=== PATIENT | male | born 1995 | race Two or more races ===

== ENCOUNTER 2017-01-09 16:57 | Emergency (ER) | payer BC ==
[~2017-01-09] VITALS: Ht 182.9 cm; Wt 85.7 kg
[2017-01-09 17:36] VITALS: BP 122/76
[2017-01-09 18:35] VITALS: BP 122/76
--- NOTE | 2017-01-09 18:35 | NUR ---
JORGE IS A 21 YO MALE BIB SELF VIA EMS FOR ANXIETY SEEN BY PA IN OVERFLOW DISPOSITION PENDING.
--- NOTE | 2017-01-09 18:36 | NUR ---
Patient discharged with v/s stable. Written and verbal after care instructions given and explained. Patient verbalized understanding. Ambulatory with steady gait. All questions addressed prior to discharge. Advised to follow up with PMD.
== END 2017-01-09 18:36 | disposition home or self-care (01) ==
LOC: MED 16:57
DX: F41.1 Generalized anxiety disorder (principal); T50.905A Adverse effect of unspecified drugs, medicaments and biological substances, initial encounter; F32.9 Major depressive disorder, single episode, unspecified; Y92.89 Other specified places as the place of occurrence of the external cause